=== PATIENT | male | born 1950 | race Caucasian/White ===

== ENCOUNTER 2019-08-18 16:11 | Inpatient (IN) | payer OTHER ==
--- OUTSIDE RECORDS SUMMARY | 2019-08-18 16:15 | XMS REPORT ---
:1950 Author Organization [facility] Address [address] [place] [address] Dr. Whatley [address] [place] [id number] Care Team Providers Name Role Phone Unavailable Unavailable Unavailable Problems This patient has no known problems. Allergies, Adverse Reactions, Alerts This patient has no known allergies or adverse reactions. Medications This patient has no known medications.
[2019-08-18] MEDS ORDERED: D50W 25 GM/50 ML SYRINGE/VIAL IV PRN (16:46)
[2019-08-18] MEDS ORDERED: GLUCAGON 1 MG/VIAL IM PRN (16:46)
[2019-08-18] MEDS ORDERED: ACETAMINOPHEN 325 MG TABLET PO PRN (16:47)
[2019-08-18] MEDS ORDERED: ONDANSETRON 4 MG/2 ML VIAL IV PRN (16:47)
[2019-08-18] MEDS ORDERED: SODIUM CHLORIDE 0.9% 10ML INJ IV PRN (17:17)
[2019-08-18] MEDS: D5 0.9 NS 1,000 ML IV SCH (17:18)
[2019-08-18] MEDS: METRONIDAZOLE 500mg IVPB 500 MG/100 ML BAG IV SCH (17:18)
[2019-08-18 17:51] LABS: Absolute Lymphocytes (CBC) 2.2 K/uL (0.7-4.9); Basophils % 0.6 % (0-1.3); Hematocrit 32.5 % (39.6-49.0); Lymphocytes % 24.5 % (15.3-44.8); MPV 8.8 fL (7.6-11.3); RBC Red Blood Cell Count 3.84 M/uL (4.33-5.43)
--- NOTE | 2019-08-18 17:57 | RAD REPORT ---
EXAM DESCRIPTION: RAD - Chest Single View - 08/18/2019 5:05 pm CLINICAL HISTORY: Cough COMPARISON: CT chest January 2019, two view chest December 2014 TECHNIQUE: AP portable chest image was obtained 1703 hour . FINDINGS: There are 2 images in the PACs dataset. The image containing the defibrillator is that of another patient incorrectly attached to this examination. The non pacemaker chest film, the correct patient, shows no acute lung parenchymal process. No failur e or volume overload. Trachea is midline. Heart and vasculature are normal. No measurable pleural eff usion and no pneumothorax. No acute bony abnormality seen. No acute aortic findings suspected. IMPRESSION: No acute cardiopulmonary process. No significant change back to December 2014. Please note that there is an incorrect image attached to the PACs dataset. The image of the patient w ith a defibrillator is incorrect and should be ignored.
[2019-08-18] MEDS ORDERED: GOLYTELY 4000 ML PO SCH (18:00)
[2019-08-18 18:03] LABS: Potassium 4.1 mmol/L (3.5-5.1)
[2019-08-18 18:14] VITALS: BMI 32.8
--- NOTE | 2019-08-18 19:37 | RAD REPORT ---
EXAM DESCRIPTION: CT - Abdomen Pelvis Wo Contrast - 08/18/2019 7:10 pm CLINICAL HISTORY: Abdominal pain, hypotensive shock COMPARISON: Thorax Wo Con dated 02/17/2019 TECHNIQUE: Axial [address] imaging of the abdomen and pelvis was performed without IV contrast. No IV contrast was given because of allergy, abnormal renal function, patient refusal or physician re quest. Oral contrast was given. All CT scans are performed using dose optimization technique as appropriate and may include automated exposure control or mA/KV adjustment according to patient size. FINDINGS: No suspicious findings in the lung bases. No pericardial thickening or effusion. Numerous surgical clips are present in the upper abdomen. History indicates partial resection of stom ach. No focal liver lesions seen. Spleen and pancreas show no acute findings. Cholecystectomy clips a re present. No biliary tree dilatation. No hydronephrosis or suspicious renal mass. Punctate calcification is present lateral left renal billie x. Urinary bladder is tightly contracted limiting assessment. No significant adrenal finding. Isodens e renal masses and pyelonephritis cannot be excluded in the absence of IV contrast. Antrum has been resected from the stomach. No wall thickening or mass at the gastric duodenum anastom osis. No dilated small bowel or acute small bowel finding. No appendicitis findings. Patient has dive rticulosis of the transverse colon and left side of the colon. No definitive diverticulitis findings. No large mass lesions seen. Right-side of the colon is incompletely distended limiting assessment. N o significant diverticulitis changes are present. A mucosal level inflammatory process could be occul t on CT imaging. No free air, free fluid, pneumatosis or focal inflammatory stranding. No mass or bulky lymphadenopat hy. Prostate gland is not enlarged. Clips are present along the pelvic floor. Two small rounded soft tissue masses are present just superior to the seminal vesicles. These measure 15-17 mm in size. No c omparison available. No history regarding a surgical procedure in this region. It is possible the juanjo gical clips are part of the stomach resection and have become free and lodged in the pelvis. No suspicious bony findings. Small bilateral fat filled inguinal hernia is present. No acute component. IMPRESSION: No bowel obstruction, free air or surgically emergent finding. Patient has colonic diverticulosis without diverticulitis confirmed. Mild mucosal level diverticuliti s or infectious/inflammatory bowel process could be occult on CT imaging. No appendicitis. Two small 15- 17 millimeter rounded masses are present along the pelvic floor. These are nonspecific but could be reactive lymph nodes. No other mass lesions seen to suspect metastatic adenopathy. Prost ate gland is not enlarged. Correlation can be made with PSA values. Full assessment is limited is the absence of IV contrast.
[2019-08-18] MEDS: PANTOPRAZOLE 40 MG INJ IVP SCH (20:11)
[2019-08-18] MEDS: INSULIN -REGULAR HUMAN 50 UNIT/0.5 ML ML SQ SCH (21:00)
[2019-08-18] MEDS ORDERED: LITHIUM CARBONATE 300 MG TAB PO SCH (21:00)
[2019-08-18] MEDS ORDERED: CIPROFLOXACIN 400mg IV 400 MG/200 ML BAG IV SCH (21:00)
[2019-08-18 22:44] LABS: Hematocrit 28.7 % (39.6-49.0)
[2019-08-19] MEDS: METRONIDAZOLE 500mg IVPB 500 MG/100 ML BAG IV SCH ×3 (00:30→17:40)
[2019-08-19] MEDS: D5 0.9 NS 1,000 ML IV SCH ×2 (00:30→09:00)
--- NOTE | 2019-08-19 01:47 | HP ---
Date of Admission: 08/18/2019 Chief Complaint: GI bleed. Code Status: Full. History Of Present Illness: Patient is a 68-year-old male with past medical history of asthma, diabe vanita mellitus type 2, vhc-gjlvxaj-hhbgflwpq, BPH, bipolar disorder, GERD, who recently has been having multiple colonoscopies for multiple polyps and had a recent polypectomy. Last colonoscopy was on Fr iday. The patient began to have sudden onset of bright red blood per rectum x4 today. Patient also reports some stomach cramps, some dizziness and lightheadedness. Otherwise, the patient denies any n ausea, vomiting, fever, or chills. Patient does not take any blood thinners. Patient does take PPI daily for his gastroesophageal reflux disease. The patient's symptoms are constant, moderate, progre ssively worsening. He was sent directly from Dr. Sanders's office for further evaluation and treatm ent. When seen on the floor, he was awake, alert, oriented x3, in some mild distress. Past Medical History: Diabetes mellitus type 2, non-insulin requiring; benign prostatic hyperplasia; bipolar disorder; gastroesophageal reflux disease; asthma; renal insufficiency. Surgical History: GreenLight procedure for prostate, TURP, cholecystectomy, partial gastrectomy and vagotomy due to perforated gastric ulcer in the 80s, tonsillectomy. Allergies: TO PENICILLIN AND SHELLFISH, ABLE TO TOLERATE CONTRAST AND IODINE. Social History: Patient does smoke occasional cigar and drink beer on social occasions, not a daily drinker, independent in his activities of daily living. Family History: Father had colon cancer and diabetes. Mother had cervical cancer and lung cancer. Review of Systems: Ten-point system reviewed, negative except as per HPI. Physical Examination: Vital Signs: Stable, afebrile. General: Awake, alert, and oriented x3. Mildly ill-appearing male elderly. HEENT: Normocephalic, atraumatic. PERRLA. EOMI. Dry mucous membranes. Oropharynx is clear. Conj unctivae anicteric. Neck: Supple. No JVD. Trachea midline. CV: S1, S2. Regular rate and rhythm. Peripheral pulses present. Respiratory: Moving air well bilaterally. No wheezing or stridor. No use of accessory muscles. Gastrointestinal: Abdomen is soft. No tenderness to palpation. Positive bowel sounds. No guarding or rigidity. Extremities: No clubbing, cyanosis, or edema. No calf tenderness. Neuro: Cranial nerves 2 through 12 intact grossly. No focal neurological deficit. Speech is normal . Strength is symmetric in bilateral upper and lower extremities. Sensation intact to light touch. Skin: No rashes. Normal skin turgor. Psych: Mood is okay. Affect is full. Insight and judgment are good. Laboratory Data: Pending blood glucose level is 130. Chest x-ray personally reviewed, no official r eport, shows no acute intrathoracic process. Assessment: A 68-year-old male with, 1.Acute GI bleed. Patient is having bright red blood per rectum, [facility] is on the case. We will monitor H and H, transfuse as needed. CBC is pending at this time. 2.Dizziness likely related to above. We will monitor blood pressure. Start on IV fluids. Keep on clear liquids for now due to possibility of procedure. 3.Diabetes mellitus type 2, non-insulin requiring. We will start on sliding scale insulin and stanton nue Accu-Cheks. 4.Benign prostatic hyperplasia. Continue home medications. 5.Gastroesophageal reflux disease without esophagitis. We will start on IV PPI. 6.Asthma. Albuterol as needed. 7.Deep venous thrombosis prophylaxis with sequential compression devices, no chemical anticoagulatio n due to bleed. Plan: Admit patient to Med-Surg, place as inpatient. Length of stay greater than 2 midnights. If h emoglobin is below 7, we will transfuse and may need to transfer to ICU. We will monitor serial H an d H. /RUY Voice ID: [id number]
[2019-08-19 04:44] LABS: Hematocrit 24.7 % (39.6-49.0)
[2019-08-19] MEDS: INSULIN -REGULAR HUMAN 50 UNIT/0.5 ML ML SQ SCH ×4 (07:30→20:08)
[2019-08-19] MEDS ORDERED: INFLUENZA VACCINE (for 3y+) 0.5 ML DOSE IMVAC ONE (08:00)
[2019-08-19] MEDS ORDERED: PNEUMOCOCCAL VACCINE 0.5 ML IMVAC ONE (08:00)
[2019-08-19] MEDS: PANTOPRAZOLE 40 MG INJ IVP SCH (08:59)
[2019-08-19 10:42] LABS: Hematocrit 23.4 % (39.6-49.0)
--- NOTE | 2019-08-19 13:17 | P.PN ---
Subjective Date of Service: 08/19/19 Primary Care Provider: JEROME-Dr. Sanders Chief Complaint: Rectal bleeding Subjective: Other (Patient feels better.) Physical Examination - Vital Signs Temperature: 97.5 F Blood Pressure: 146/75 Pulse: 80 Respirations: 18 Pulse Ox (%): 100 - Physical Exam General: Alert, In no apparent distress, Oriented x3 HEENT: Atraumatic Neck: Supple Respiratory: Clear to auscultation bilaterally, Normal air movement Cardiovascular: Normal pulses, Regular rate/rhythm Gastrointestinal: Normal bowel sounds, Soft and benign, No tenderness, No masses , No rebound, No guarding - Studies Laboratory Data (last 24 hrs) 08/19/19 10:25: Hgb 8.0 L, Hct 23.4 L 08/19/19 04:16: Hgb 8.3 L, Hct 24.7 L 08/18/19 22:22: Hgb 9.7 L, Hct 28.7 L 08/18/19 17:35: Sodium 138, Potassium 4.1, BUN 16, Creatinine 1.11, Glucose 147 H 08/18/19 17:35: WBC 9.1, Hgb 11.0 L, Hct 32.5 L, Plt Count 210 Medications List Reviewed: Yes Assessment & Plan Discharge Plan: Home Plan to discharge in: 24 Hours Physician Review Additional Text: Impression: Acute GI bleed with recent colonoscopy/polypectomy Presyncope related to above Diabetes mellitus type 2 [id number]-hwzldmbup BPH GERD Asthma Plan: Acute GI bleed with recent colonoscopy/polypectomy: Continue to monitor closely. Patient scheduled for colonoscopy this morning. Maintain hemoglobin above 7.5. May need to transfuse if hemoglobin continues to drop. Await GI findings and recommendations. Anticipate improvement over the next 24 hr. Presyncope related to above: Continue as above. Diabetes mellitus type 2 [id number]: Continue with Accu-Cheks. Sliding scale in place. BPH: Continue medication GERD: Continue medication Asthma: Will provide medication. Time Spent Managing Pts Care (In Minutes): 55
[2019-08-19] MEDS ORDERED: propofoL 200 MG/20 ML VIAL IV ONE (13:49)
[2019-08-19] MEDS ORDERED: LIDOCAINE 1% MPF 2 ML AMPULE ONE (13:49)
[2019-08-19] MEDS ORDERED: NA CHLORIDE 0.9% 1,000 ML ONE (15:06)
[2019-08-19] MEDS ORDERED: ACETAMINOPHEN 500 MG TAB PO PRN (15:18)
[2019-08-19] MEDS ORDERED: GLUCAGON 1 MG/VIAL IM PRN (15:25)
[2019-08-19] MEDS ORDERED: D50W 25 GM/50 ML SYRINGE/VIAL IV PRN (15:25)
[2019-08-19] MEDS ORDERED: ONDANSETRON 4 MG/2 ML VIAL IV PRN (15:45)
[2019-08-19 17:23] LABS: Hematocrit 23.3 % (39.6-49.0)
[2019-08-19] MEDS ORDERED: LITHIUM CARBONATE 300 MG TAB PO SCH (21:00)
[2019-08-19 23:36] LABS: RBC Red Blood Cell Count 2.64 M/uL (4.33-5.43)
[2019-08-20 00:03] LABS: ALT/SGPT 15 U/L (12-78); AST/SGOT 8 U/L (15-37); Albumin 2.9 g/dL (3.4-5.0); Alkaline Phosphatase 44 U/L (45-117); BUN Blood Urea Nitrogen 7 mg/dL (7-18); Bicarbonate 29 mmol/L (21-32); Bilirubin Total 0.3 mg/dL (0.2-1.0); Creatine Phosphokinase 40 U/L (39-308); Folic Acid, (Folate) 9.7 ng/mL (3.1-17.5); Glucose Level 124 mg/dL (74-106); Magnesium 1.9 mg/dL (1.8-2.4); NT PRO-BNP 134 pg/mL (<125); Phosphorus 2.3 mg/dL (2.5-4.9); Potassium 3.2 mmol/L (3.5-5.1); Protein, Total 5.2 g/dL (6.4-8.2); Sodium Level 144 mmol/L (136-145); Troponin I < 0.02 ng/mL (0.0-0.045)
[2019-08-20] MEDS: METRONIDAZOLE 500mg IVPB 500 MG/100 ML BAG IV SCH ×2 (00:03→09:39)
[2019-08-20 00:58] VITALS: O2SAT 98
[2019-08-20] MEDS ORDERED: NA CHLORIDE 0.9% 250 ML ONE ×2 (01:18→05:39)
[2019-08-20] MEDS ORDERED: TEMAZEPAM 15 MG CAP PO PRN (02:29)
[2019-08-20] MEDS ORDERED: PANTOPRAZOLE 40MG TABLET PO SCH (07:30)
[2019-08-20] MEDS: INSULIN -REGULAR HUMAN 50 UNIT/0.5 ML ML SQ SCH ×2 (07:30→11:30)
[2019-08-20 11:52] LABS: Hematocrit 26.4 % (39.6-49.0)
--- NOTE | 2019-08-20 12:02 | P.DS ---
Admission Date: 08/18/19 Discharge Date: 08/20/19 Primary Care Provider: Karolina Sanders Disposition: ROUTINE DISCHARGE Discharge Condition: GOOD Reason for Admission: Rectal bleeding Consultations: Karolina Sanders Procedures: CT scan: FINDINGS: No suspicious findings in the lung bases. No pericardial thickening or effusion. Numerous surgical clips are present in the upper abdomen. History indicates partial resection of stomach. No focal liver lesions seen. Spleen and pancreas show no acute findings. Cholecystectomy clips are present. No biliary tree dilatation. No hydronephrosis or suspicious renal mass. Punctate calcification is present lateral left renal calyx. Urinary bladder is tightly contracted limiting assessment. No significant adrenal finding. Isodense renal masses and pyelonephritis cannot be excluded in the absence of IV contrast. Antrum has been resected from the stomach. No wall thickening or mass at the gastric duodenum anastomosis. No dilated small bowel or acute small bowel finding. No appendicitis findings. Patient has diverticulosis of the transverse colon and left side of the colon. No definitive diverticulitis findings. No large mass lesions seen. Right-side of the colon is incompletely distended limiting assessment. No significant diverticulitis changes are present. A mucosal level inflammatory process could be occult on CT imaging. No free air, free fluid, pneumatosis or focal inflammatory stranding. No mass or bulky lymphadenopathy. Prostate gland is not enlarged. Clips are present along the pelvic floor. Two small rounded soft tissue masses are present just superior to the seminal vesicles. These measure 15-17 mm in size. No comparison available. No history regarding a surgical procedure in this region. It is possible the surgical clips are part of the stomach resection and have become free and lodged in the pelvis. No suspicious bony findings. Small bilateral fat filled inguinal hernia is present. No acute component. IMPRESSION: No bowel obstruction, free air or surgically emergent finding. Patient has colonic diverticulosis without diverticulitis confirmed. Mild mucosal level diverticulitis or infectious/inflammatory bowel process could be occult on CT imaging. No appendicitis. Two small 15- 17 millimeter rounded masses are present along the pelvic floor. These are nonspecific but could be reactive lymph nodes. No other mass lesions seen to suspect metastatic adenopathy. Prostate gland is not enlarged. Correlation can be made with PSA values. Colonoscopy: Pre clipping of polypectomy area. No further bleeding Medical problem list: Acute GI bleed with recent colonoscopy/polypectomy Presyncope related to above Diabetes mellitus type 2 orn-cgpjeak-naqkkgyqu Bipolar disorder GERD Brief History of Present Illness: 68-year-old male presented to the emergency room with rectal bleeding. Patient had colonoscopy on Saturday. Patient had multiple polyps with polypectomy. Patient reported some dizziness and lightheadedness. Patient was seen by GI and sent for further evaluation and treatment. Hospital Course: Patient presented with acute GI bleed with recent colonoscopy and polypectomy. Patient was given multiple transfusions. Hemoglobin now stable. GI was consulted. Colonoscopy performed. Colonoscopy showed no further bleeding. Area of recent polypectomy was a Re clipped. No further bleeding noted. At discharge vital signs stable. Orthostatics unremarkable. Hemoglobin remained stable at 9.0. At discharge patient will continue with iron supplementation twice daily. Recommend follow up with GI in 1-2 weeks to follow up this hospitalization. Recommend recheck lab-CBC in 1-2 weeks to monitor stability. Patient with diabetes mellitus type 2 non insulin dependent. This has remained stable. At discharge he will continue with his medication metformin 1000 mg 1 pill twice daily. Patient with bipolar disorder. Patient will continue with lithium 300 mg daily. Patient with GERD. Patient will continue with Protonix 40 mg daily. Vital Signs/Physical Exam: Temp Pulse Resp BP Pulse Ox 98.4 F 66 20 119/66 97 08/20/19 08:00 08/20/19 08:00 08/20/19 08:00 08/20/19 08:00 08/20/19 08:00 General: Alert, In no apparent distress, Oriented x3 HEENT: Atraumatic Neck: Supple Respiratory: Clear to auscultation bilaterally, Normal air movement Cardiovascular: Normal pulses, Regular rate/rhythm Gastrointestinal: Normal bowel sounds, Soft and benign, Non-distended, No tenderness, No masses, No rebound, No guarding Musculoskeletal: No erythema, No tenderness, No warmth Integumentary: No tenderness/swelling, No erythema, No warmth, No cyanosis Neurological: Normal speech, Normal strength at 5/5 x4 extr, Normal tone, Normal affect Laboratory Data at Discharge: WBC 9.1 K/uL (4.3-10.9) 08/18/19 17:35 Hgb 7.3 g/dL (13.6-17.9) L* 08/19/19 22:20 Hct 22.0 % (39.6-49.0) L 08/19/19 22:20 Plt Count 210 K/uL (152-406) 08/18/19 17:35 Sodium 144 mmol/L (136-145) 08/19/19 23:02 Potassium 3.2 mmol/L (3.5-5.1) L 08/19/19 23:02 BUN 7 mg/dL (7-18) 08/19/19 23:02 Creatinine 0.91 mg/dL (0.55-1.3) 08/19/19 23:02 Glucose 124 mg/dL (74-106) H 08/19/19 23:02 Phosphorus 2.3 mg/dL (2.5-4.9) L 08/19/19 23:02 Magnesium 1.9 mg/dL (1.8-2.4) 08/19/19 23:02 Total Bilirubin 0.3 mg/dL (0.2-1.0) 08/19/19 23:02 AST 8 U/L (15-37) L 08/19/19 23:02 ALT 15 U/L (12-78) 08/19/19 23:02 Alkaline Phosphatase 44 U/L (45-117) L 08/19/19 23:02 Troponin I < 0.02 ng/mL (0.0-0.045) 08/19/19 23:02 Home Medications: RX: [place] Carbonate [Lithotabs *] 300 mg PO BEDTIME 08/18/19 RX: Metformin ER [Glucophage ER*] 1,000 mg PO BID 08/18/19 RX: Pantoprazole [Protonix Tab*] 40 mg PO DAILY 08/18/19 Ferrous Sulfate [Iron] 325 mg PO BID #60 tablet 08/20/19 New Medications: Ferrous Sulfate [Iron] 325 mg PO BID #60 tablet Patient Discharge Instructions: 1. Recommend follow up with PCP within 1 week to follow up this hospitalization. 2. Patient presented with acute GI bleed with recent colonoscopy and polypectomy. Patient was given multiple transfusions. Hemoglobin now stable. GI was consulted. Colonoscopy performed. Colonoscopy showed no further bleeding. Area of recent polypectomy was a Re clipped. No further bleeding noted. At discharge vital signs stable. Orthostatics unremarkable. Hemoglobin remained stable 9.0. At discharge patient will continue with iron supplementation twice daily. Recommend follow up with GI in 1-2 weeks to follow up this hospitalization. Recommend recheck lab-CBC in 1-2 weeks to monitor stability. 3. Patient with diabetes mellitus type 2 non insulin dependent. This has remained stable. At discharge he will continue with his medication metformin 1000 mg 1 pill twice daily. 4. Patient with bipolar disorder. Patient will continue with lithium 300 mg daily. 5. Patient with GERD. Patient will continue with Protonix 40 mg daily. Diet: AHA Activity: Ad uche Time spent managing pt's care (in minutes): 55
[2019-08-20 14:07] VITALS: BP 144/76; TEMP 98.5
--- NOTE | 2019-08-20 22:42 | OP ---
Surgeon: Dinh Sanders MD Procedure To Be Performed: Colonoscopy. Indication For Procedure: Rectal bleeding. Plan For Anesthesia: Monitored anesthesia care. Complexity: Average. Technique: After obtaining informed consent from the patient, explaining risks and complications whi ch include but are not limited to bleeding, infection, perforation, and anesthesia complication, tonny ent was placed in the left lateral position. Sedation was given. A digital rectal exam was performe d. Then, scope was inserted into the rectum and carefully guided up until the cecum. There was no e vidence of active bleeding, in fact, yellow clear stool was seen in the colon. The cecum was identif ied by the appendiceal orifice and ileocecal valve. The scope withdrawal time was 15 minutes. Quali ty of prep was fair. Findings: Several diverticula were seen in the sigmoid and a few in the descending colon. Initially , the site of the large cecal polypectomy was seen. Areas of ulceration seen with some erythema arou nd it. No definitive etiology for bleeding was identified, but due to lack of other findings, I did place a clip on one of the sites that appeared a little inflamed. Subsequently while withdrawing the scope in the transverse colon, a site of a small polypectomy was seen. This actually had a visible vessel, which appears to be the highest probability source of bleeding. For this reason, I did place 2 clips to cut off the supply to the vessel. This was successful. No other lesion was seen in the colon. Complications: None. Tolerance To Anesthesia: Excellent. Postoperative Diagnoses: Colonic ulcer with visible vessel, status post treatment. Plan: Continue current management. Monitor the patient and transfuse as needed. As from the GI poi nt of view, can be restarted on soft diet and if there is no evidence of visible active bleeding, can be discharged tomorrow and follow up with us in the clinic. US/MODL Voice ID: [id number] Report ID: [id number]
== END 2019-08-20 13:10 | disposition home or self-care (01) | DRG 921 ==
LOC: OBSVTOIN 16:11 → 2ND 16:11
PROVIDERS: ADMIT Family Medicine; ATTEND Family Medicine
PROC: 0DJD8ZZ Inspection of Lower Intestinal Tract, Via Natural or Artificial Opening Endoscopic (ICD-10-PCS; principal; 2019-08-20)
DX: K91.840 Postprocedural hemorrhage of a digestive system organ or structure following a digestive system procedure (principal); E11.9 Type 2 diabetes mellitus without complications; K21.9 Gastro-esophageal reflux disease without esophagitis; J45.909 Unspecified asthma, uncomplicated; R55 Syncope and collapse; N40.0 Benign prostatic hyperplasia without lower urinary tract symptoms; F31.9 Bipolar disorder, unspecified; Y84.8 Other medical procedures as the cause of abnormal reaction of the patient, or of later complication, without mention of misadventure at the time of the procedure
CPT/HCPCS: 36415; 71045; 74176; 80048; 80053; 80178; 82550; 82607; 82746; 82947; 83540; 83735; 83880; 84100; 84484; 85014; 85018; 85025; 85044; 86850; 86900; 86901; C9113; J0744; J2001; J2704; J7030; J7042; P9016

== ENCOUNTER 2021-07-17 02:54 | Emergency (ER) | payer OTHER ==
--- OUTSIDE RECORDS SUMMARY | 2021-07-17 02:57 | XMS REPORT | Continuity of Care Document ---
:1950 Author Organization [facility] t Address [address] [place] [address] Dr. Whatley [address] [place] [id number] Care Team Providers Name Role Phone Unavailable Unavailable Unavailable Problems This patient has no known problems. Allergies, Adverse Reactions, Alerts This patient has no known allergies or adverse reactions. Medications This patient has no known medications. Procedures This patient has no known procedures. Results This patient has no known results.
[2021-07-17] MEDS ORDERED: ONDANSETRON 4 MG/2 ML VIAL ONE (03:31)
[2021-07-17] MEDS ORDERED: MORPHINE 4 MG/ML SYR ONE (03:31)
[2021-07-17] MEDS ORDERED: NA CHLORIDE 0.9% 1,000 ML ONE (03:31)
[2021-07-17 03:44] LABS: Absolute Lymphocytes (CBC) 2.4 K/uL (0.7-4.9); Basophils % 0.7 % (0-1.3); Hematocrit 37.4 % (39.6-49.0); MPV 7.6 fL (7.6-11.3); RBC Red Blood Cell Count 4.44 M/uL (4.33-5.43)
[2021-07-17 03:56] LABS: ALT/SGPT 18 U/L (12-78); AST/SGOT 12 U/L (15-37); Albumin 3.5 g/dL (3.4-5.0); Alkaline Phosphatase 65 U/L (45-117); BUN Blood Urea Nitrogen 18 mg/dL (7-18); Bicarbonate 27 mmol/L (21-32); Bilirubin Direct < 0.1 mg/dL (0-0.2); Bilirubin Total 0.3 mg/dL (0.2-1.0); Glucose Level 146 mg/dL (74-106); Lipase 197 U/L (73-393); Potassium 4.3 mmol/L (3.5-5.1); Protein, Total 7.2 g/dL (6.4-8.2); Sodium Level 139 mmol/L (136-145)
[2021-07-17] MEDS ORDERED: METHYLPREDNISOLONE 125 MG INJ ONE (04:10)
[2021-07-17] MEDS ORDERED: DIPHENHYDRAMINE 50 MG/ML VIAL ONE (04:11)
--- NOTE | 2021-07-17 05:45 | ER ---
Nurse's Notes [facility] Name: Maximiliano Tamez Age: 70 yrs Sex: Male : 1950 Arrival Date: 07/17/2021 Time: 02:58 Bed 13 Private MD: Diagnosis: Abdominal pain, unspecified-diverticulosis Presentation: 07/17 03:12 Chief complaint: Patient states: right lower quad/groin pain since 0900 yesterday em morning, reports N/D, denies fever or vomiting. Coronavirus screen: Vaccine status: Patient reports receiving the 2nd dose of the covid vaccine. Ebola Screen: Patient negative for fever greater than or equal to 101.5 degrees Fahrenheit, and additional compatible Ebola Virus Disease symptoms Patient denies exposure to infectious person. Patient denies travel to an Ebola-affected area in the 21 days before illness onset. No symptoms or risks identified at this time. Initial Sepsis Screen: Does the patient meet any 2 criteria? No. Patient's initial sepsis screen is negative. Does the patient have a suspected source of infection? No. Patient's initial sepsis screen is negative. Risk Assessment: Do you want to hurt yourself or someone else? Patient reports no desire to harm self or others. Onset of symptoms was July 17, 2021. 03:12 Method Of Arrival: Ambulatory em 03:12 Acuity: MILLI 3 em Historical: - Allergies: 03:13 PENICILLINS; em 03:13 iodine; em 03:13 SHELLFISH; em - PMHx: 03:13 Diabetes mellitus; chronic pneumonia; em - PSHx: 03:13 abdominal surgery; em - Immunization history:: Adult Immunizations up to date. - Social history:: Smoking status: Patient denies any tobacco usage or history of. Patient/guardian denies using alcohol, street drugs, The patient lives with family. - Family history:: not pertinent. Screenin:11 Abuse screen: Denies threats or abuse. Nutritional screening: No deficits noted. fu Tuberculosis screening: No symptoms or risk factors identified. Fall Risk None identified. Assessment: 03:10 General: Appears in no apparent distress. Behavior is calm, cooperative, appropriate fu for age. Pain: Complains of pain in RLQ Pain does not radiate. Pain currently is 7 out of 10 on a pain scale. Neuro: Level of Consciousness is awake, alert, obeys commands, Oriented to person, place, time, situation, Reconciliation Accountant are equal bilaterally Moves all extremities. Gait is steady, Speech is normal, Facial symmetry appears normal. GI: Bowel sounds present X 4 quads. Abd is soft X 4 quads. Derm: Skin is intact. 04:00 Reassessment: Patient and/or family updated on plan of care and expected duration. Pain fu level reassessed. Patient is alert, oriented x 3, equal unlabored respirations, skin warm/dry/pink. 05:00 Reassessment: No changes from previously documented assessment. Patient and/or family fu updated on plan of care and expected duration. Pain level reassessed. Patient is alert, oriented x 3, equal unlabored respirations, skin warm/dry/pink. Vital Signs: 03:12 BP 164 / 84; Pulse 71; Resp 20; Temp 97.6; Pulse Ox 99% on R/A; Weight 88.45 kg; Height em 5 ft. 7 in. (170.18 cm); Pain 5/10; 03:19 BP 141 / 79; Pulse 67; Resp 16; Pulse Ox 98% on R/A; Pain 6/10; fu 04:00 BP 169 / 82; Pulse 61; Resp 14; Pulse Ox 96% ; Pain 0/10; fu 05:00 BP 139 / 76; Pulse 61; Resp 14; Pulse Ox 97% ; fu 03:12 Body Mass Index 30.54 (88.45 kg, 170.18 cm) em ED Course: 02:58 Patient arrived in ED. bp1 03:03 Mercedes Bradford MD is Attending Physician. ma2 03:09 Nav Mills, JOHN is Primary Nurse. fu 03:11 Patient has correct armband on for positive identification. Pulse ox on. NIBP on. fu 03:13 Triage completed. em 03:13 Arm band placed on. em 03:26 No provider procedures requiring assistance completed. fu 03:26 Inserted saline lock: 20 gauge in right antecubital area, using aseptic technique. fu Blood collected. 04:47 CT Abd/Pelvis - IV Contrast Only In Process Unspecified. EDMS 05:43 Dinh Sanders MD is Referral Physician. ma2 06:03 IV discontinued, bleeding controlled, Pressure dressing applied. fu Administered Medications: 03:39 Drug: NS 0.9% 1000 ml Route: IV; Rate: 1 bolus; Site: right antecubital; fu 05:23 Follow up: Response: No adverse reaction; IV Status: Completed infusion; IV Intake: fu 1000ml 03:39 Drug: Zofran (Ondansetron) 4 mg Route: IVP; Site: right antecubital; fu 04:39 Follow up: Response: No adverse reaction fu 03:39 Drug: morphine 4 mg Route: IVP; Site: right antecubital; fu 04:10 Follow up: Response: Pain is decreased fu 04:18 Drug: Benadryl (diphenhydrAMINE) 50 mg Route: IVP; Site: right antecubital; fu 05:20 Follow up: Response: No adverse reaction fu 04:18 Drug: MethylPrednisoLONE 125 mg Route: IVP; Site: right antecubital; fu 05:18 Follow up: Response: No adverse reaction fu Intake: 05:23 IV: 1000ml; Total: 1000ml. fu Outcome: 05:44 Discharge ordered by MD. salazar 06:03 Discharged to home fu 06:03 Condition: good 06:03 Discharge instructions given to patient, Instructed on discharge instructions, follow up and referral plans. Demonstrated understanding of instructions, follow-up care, Prescriptions given X 2. 06:55 Patient left the ED. fu Signatures: Dispatcher [employer] Kashif Rolle, RN JOHN Nav Mills RN RN Mercedes Crockett MD MD ma2 [place], [facility] Corrections: (The following items were deleted from the chart) 03:15 03:13 Allergies: No Known Allergies; em em
--- NOTE | 2021-07-17 05:45 | EDPHYS ---
Physician Documentation [facility] Name: Maximiliano Tamez Age: 70 yrs Sex: Male : 1950 Arrival Date: 07/17/2021 Time: 02:58 Bed 13 Private MD: ED Physician Mercedes Bradford HPI: 07/17 04:05 This 70 yrs old Male presents to ER via Ambulatory with complaints of ma2 Abdominal Pain. 04:05 Onset: The symptoms/episode began/occurred gradually, 1 day(s) ago. Associated signs ma2 and symptoms: Pertinent negatives: dysuria, headache, incontinence, numbness, vomiting, weakness. Severity of symptoms: At their worst the symptoms were moderate, in the emergency department the symptoms are unchanged. The patient has not experienced similar symptoms in the past. Historical: - Allergies: 03:13 PENICILLINS; em 03:13 iodine; em 03:13 SHELLFISH; em - PMHx: 03:13 Diabetes mellitus; chronic pneumonia; em - PSHx: 03:13 abdominal surgery; em - Immunization history:: Adult Immunizations up to date. - Social history:: Smoking status: Patient denies any tobacco usage or history of. Patient/guardian denies using alcohol, street drugs, The patient lives with family. - Family history:: not pertinent. ROS: 04:05 Constitutional: Negative for fever, chills, and weight loss. ma2 04:05 All other systems are negative. Exam: 04:05 Constitutional: This is a well developed, well nourished patient who is awake, alert, ma2 and in no acute distress. Head/Face: Normocephalic, atraumatic. Eyes: Pupils equal round and reactive to light, extra-ocular motions intact. Lids and lashes normal. Conjunctiva and sclera are non-icteric and not injected. Cornea within normal limits. Periorbital areas with no swelling, redness, or edema. ENT: Nares patent. No nasal discharge, no septal abnormalities noted. Tympanic membranes are normal and external auditory canals are clear. Oropharynx with no redness, swelling, or masses, exudates, or evidence of obstruction, uvula midline. Mucous membranes moist. Neck: Trachea midline, no thyromegaly or masses palpated, and no cervical lymphadenopathy. Supple, full range of motion without nuchal rigidity, or vertebral point tenderness. No Meningismus. Chest/axilla: Normal chest wall appearance and motion. Nontender with no deformity. No lesions are appreciated. Cardiovascular: Regular rate and rhythm with a normal S1 and S2. No gallops, murmurs, or rubs. Normal PMI, no JVD. No pulse deficits. Respiratory: Lungs have equal breath sounds bilaterally, clear to auscultation and percussion. No rales, rhonchi or wheezes noted. No increased work of breathing, no retractions or nasal flaring. Abdomen/GI: Soft, non-tender, with normal bowel sounds. No distension or tympany. No guarding or rebound. No evidence of tenderness throughout. Back: No spinal tenderness. No costovertebral tenderness. Full range of motion. Skin: Warm, dry with normal turgor. Normal color with no rashes, no lesions, and no evidence of cellulitis. MS/ Extremity: Pulses equal, no cyanosis. Neurovascular intact. Full, normal range of motion. Neuro: Awake and alert, GCS 15, oriented to person, place, time, and situation. Cranial nerves II-XII grossly intact. Motor strength 5/5 in all extremities. Sensory grossly intact. Cerebellar exam normal. Normal gait. Psych: Awake, alert, with orientation to person, place and time. Behavior, mood, and affect are within normal limits. Vital Signs: 03:12 BP 164 / 84; Pulse 71; Resp 20; Temp 97.6; Pulse Ox 99% on R/A; Weight 88.45 kg; Height em 5 ft. 7 in. (170.18 cm); Pain 5/10; 03:19 BP 141 / 79; Pulse 67; Resp 16; Pulse Ox 98% on R/A; Pain 6/10; fu 04:00 BP 169 / 82; Pulse 61; Resp 14; Pulse Ox 96% ; Pain 0/10; fu 05:00 BP 139 / 76; Pulse 61; Resp 14; Pulse Ox 97% ; fu 03:12 Body Mass Index 30.54 (88.45 kg, 170.18 cm) em MDM: 03:19 Patient medically screened. [facility] 04:05 Differential diagnosis: Ligament Injury Peptic Ulcer Pyelonephritis sprain. [facility] 05:43 Data reviewed: vital signs, nurses notes. Counseling: I had a detailed discussion with ma2 the patient and/or guardian regarding: the historical points, exam findings, and any diagnostic results supporting the discharge/admit diagnosis, the presence of at least one elevated blood pressure reading (>120/80) during this emergency department visit, the need for outpatient follow up. Response to treatment: the patient's symptoms have resolved after treatment. 07/17 03:03 Order name: Basic Metabolic Panel; Complete Time: 04:08 [facility] 07/17 03:03 Order name: CBC with Diff; Complete Time: 04:08 [facility] 07/17 03:03 Order name: Hepatic Function; Complete Time: 04:08 [facility] 07/17 03:03 Order name: Lipase; Complete Time: 04:08 [facility] 07/17 03:20 Order name: CT Abd/Pelvis - IV Contrast Only [facility] 07/17 03:03 Order name: IV Saline Lock; Complete Time: 03:26 [facility] 07/17 03:03 Order name: Labs collected and sent; Complete Time: 03:26 [facility] Administered Medications: 03:39 Drug: NS 0.9% 1000 ml Route: IV; Rate: 1 bolus; Site: right antecubital; fu 05:23 Follow up: Response: No adverse reaction; IV Status: Completed infusion; IV Intake: fu 1000ml 03:39 Drug: Zofran (Ondansetron) 4 mg Route: IVP; Site: right antecubital; fu 04:39 Follow up: Response: No adverse reaction fu 03:39 Drug: morphine 4 mg Route: IVP; Site: right antecubital; fu 04:10 Follow up: Response: Pain is decreased fu 04:18 Drug: Benadryl (diphenhydrAMINE) 50 mg Route: IVP; Site: right antecubital; fu 05:20 Follow up: Response: No adverse reaction fu 04:18 Drug: MethylPrednisoLONE 125 mg Route: IVP; Site: right antecubital; fu 05:18 Follow up: Response: No adverse reaction fu Disposition Summary: 07/17/21 05:44 Discharge Ordered Location: Home [facility] Condition: Stable [facility] Diagnosis - Abdominal pain, unspecified - diverticulosis [facility] Followup: [facility] - With: Dinh Sanders MD - When: Tomorrow - Reason: If symptoms return, Continuance of care Discharge Instructions: - Discharge Summary Sheet ma2 - Abdominal Pain, Adult ma2 - Diverticulosis ma2 Forms: - Medication Reconciliation Form ma2 - Thank You Letter ma2 - Antibiotic Education ma2 - Prescription Opioid Use ma2 Prescriptions: - Colace 100 mg Oral Tablet - take 1 tablet by ORAL route every 12 hours; 14 tablet; Refills: 0, Product ma2 Selection Permitted - Diclofenac Sodium 75 mg Oral Tablet Sustained Release - take 1 tablet by ORAL route 2 times per day; 30 tablet; Refills: 0, Product ma2 Selection Permitted Signatures: Dispatcher [employer] Kashif Rolle RN RN em Umadhay, Felix RN Mercedes Clifford MD MD ma2 Corrections: (The following items were deleted from the chart) 03:15 03:13 Allergies: No Known Allergies; em
[2021-07-17 07:01] VITALS: TEMP 97.6
[2021-07-17 07:06] VITALS: BP 139/76; O2SAT 97
--- NOTE | 2021-07-17 12:04 | RAD REPORT ---
EXAM DESCRIPTION: CT - Abdomen Pelvis W Contrast - 07/17/2021 6:31 am CLINICAL HISTORY: The patient is 70 years old and is Male; ABD PAIN TECHNIQUE: Axial computed tomography images of the abdomen and pelvis with intravenous contrast. S agittal and coronal reformatted images were created and reviewed. This CT exam was performed using one or more of the following dose reduction techniques: automated exposure control, adjustment of t he mA and/or kV according to patient size, and/or use of iterative reconstruction technique. COMPARISON: No relevant prior studies available. FINDINGS: Lung bases: Unremarkable. No mass. No consolidation. ABDOMEN: Liver: Unremarkable. No mass. Gallbladder and bile ducts: Cholecystectomy without biliary dilatation. Pancreas: No findings to suggest acute pancreatitis. No mass visualized. No ductal dilation. Spleen: Unremarkable. No splenomegaly. Adrenals: Unremarkable. No mass. Kidneys and ureters: Mild bilateral perinephric stranding, nonspecific. No solid renal lesion. No hydronephrosis. Punctate left nephrolithiasis. Stomach and bowel: Colonic diverticulosis. Previous gastric surgery. No small bowel dilatation or obstruction. No mucosal thickening. PELVIS: Appendix: The visualized appendix is normal. No pericecal inflammation to suggest acute appendici tis. Bladder: Unremarkable. No mass. Reproductive: Lobulated prostate gland. ABDOMEN and PELVIS: Intraperitoneal space: Unremarkable. No free air. No significant fluid collection. 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 No acute fracture visualized. No dislocation. Soft tissues: Unremarkable. Vasculature: Unremarkable. No abdominal aortic aneurysm. Lymph nodes: No pathologically enlarged lymph nodes. IMPRESSION: 1. No acute obstructive or inflammatory process identified. Normal appendix. 2. Colonic diverticulosis. 3. Additional non-emergent findings as above. Electronically signed by: Indu Willis MD 07/17/2021 5:16 AM DIE MAINTENANCE TECHNICIAN Due to temporary technical issues with the PACS/Fluency reporting system, reports are being signed by the in house radiologists without review as a courtesy to insure prompt reporting. The interpreting radiologist is fully responsible for the content of the report.
== END 2021-07-17 06:55 | disposition home or self-care (01) ==
LOC: ER 02:54
DX: K57.30 Diverticulosis of large intestine without perforation or abscess without bleeding (principal); E11.9 Type 2 diabetes mellitus without complications; Z88.0 Allergy status to penicillin; Z91.013 Allergy to seafood; Z91.048 Other nonmedicinal substance allergy status
CPT/HCPCS: 96361; 85025; 80048; 36415; 80076; 83690; 74177; 96375; 96374; 99284; Q9967; J1200; J7030; J2930; J2405